=== PATIENT | female | born 1975 | race Native Hawaiian/Other Pacific Islander ===

== ENCOUNTER 2020-11-26 19:13 | Emergency (ER) | payer SELFPAY ==
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
[2020-11-26 20:05] VITALS: BP 149/89
[2020-11-26] MEDS ORDERED: ACETAMINOPHEN 500 MG TAB PO ONE (20:05)
[2020-11-26 21:09] LABS: HCG Qualitative,Urine Negative (Negative)
--- NOTE | 2020-11-26 22:44 | XRay Report ---
CHEST 1 VIEW 11/26/2020 9:55 PM INDICATION / CLINICAL INFORMATION: chest wall pain. COMPARISON: None available. FINDINGS: SUPPORT DEVICES: None. HEART / MEDIASTINUM: No significant abnormality. LUNGS / PLEURA: No significant pulmonary or pleural abnormality. No pneumothorax. ADDITIONAL FINDINGS: No significant additional findings. IMPRESSION: No acute cardiopulmonary abnormality. Signer Name: Sadi Mera MD Signed: 11/26/2020 10:09 PM Workstation Name: [id number]
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
== END 2020-11-27 00:05 | disposition home or self-care (01) ==
LOC: EDUNIT# → ED 19:13
DX: S46.912A Strain of unspecified muscle, fascia and tendon at shoulder and upper arm level, left arm, initial encounter (principal); R07.89 Other chest pain; Z79.899 Other long term (current) drug therapy; V49.59XA Passenger injured in collision with other motor vehicles in traffic accident, initial encounter; Y92.410 Unspecified street and highway as the place of occurrence of the external cause; Y93.89 Activity, other specified; Y99.8 Other external cause status
CPT/HCPCS: 71045; 81025; 93005